=== PATIENT | female | born 1980 | race Caucasian/White ===

== ENCOUNTER → 2017-04-03 | Outpatient (CLI) | payer BC | END | disposition home or self-care (01) | LOC: GMAJ 14:23 → EDSTATUS 17:05 | PROVIDERS: ATTEND Family Medicine | DX: Z00.00 Encounter for general adult medical examination without abnormal findings (principal) ==

== ENCOUNTER → 2018-03-24 | Outpatient (CLI) | payer BC, OTHER | LOC: GMAHI 12:21 | PROVIDERS: ATTEND Nurse Practitioner Family | DX: E34.9 Endocrine disorder, unspecified (principal); E03.9 Hypothyroidism, unspecified ==

== ENCOUNTER → 2018-04-16 | Outpatient (CLI) | payer OTHER | LOC: GMAHI 16:39 | PROVIDERS: ATTEND Nurse Practitioner Family | DX: E34.9 Endocrine disorder, unspecified (principal) ==

== ENCOUNTER → 2019-03-24 | Outpatient (CLI) | payer BC | LOC: GMAHI 10:46 | PROVIDERS: ATTEND Nurse Practitioner Family | DX: E34.9 Endocrine disorder, unspecified (principal) ==

== ENCOUNTER → 2020-05-06 | Outpatient (CLI) | payer BC | LOC: GMAHI 11:34 | PROVIDERS: ATTEND Nurse Practitioner Family | DX: E34.9 Endocrine disorder, unspecified (principal); E03.9 Hypothyroidism, unspecified ==

== ENCOUNTER → 2020-11-01 | Outpatient (CLI) | payer BC | LOC: GMA CAST 14:26 | PROVIDERS: ATTEND Family Medicine Sports Medicine | DX: N30.00 Acute cystitis without hematuria (principal) ==